=== PATIENT | female | born 1965 | race Two or more races ===

== ENCOUNTER 2016-07-05 12:45 | Emergency (ER) | payer MEDICAID ==
[~2016-07-05] VITALS: Ht 170.2 cm; Wt 127.0 kg
[2016-07-05] MEDS ORDERED: ALBUTEROL FS 2.5 MG/3 ML VIAL.NEB NEB ONE (13:30)
[2016-07-05] MEDS ORDERED: IPRATROPIUM NEB FS 0.5 MG/2.5 ML AMPUL.NEB NEB ONE (13:30)
[2016-07-05] MEDS ORDERED: IPRATROPIUM NEB FS 0.5 MG/2.5 ML AMPUL.NEB ONE (13:40)
[2016-07-05] MEDS ORDERED: ALBUTEROL FS 2.5 MG/3 ML VIAL.NEB ONE (13:40)
[2016-07-05 14:26] VITALS: BP 141/7
== END 2016-07-05 14:26 | disposition home or self-care (01) ==
LOC: ER 12:47
DX: J40 Bronchitis, not specified as acute or chronic (principal); I10 Essential (primary) hypertension; E11.9 Type 2 diabetes mellitus without complications; F17.210 Nicotine dependence, cigarettes, uncomplicated; F10.20 Alcohol dependence, uncomplicated; I25.2 Old myocardial infarction
CPT/HCPCS: 71010; 94640; 99283; A4606; Z7610